=== PATIENT | male | born 1955 | race Caucasian/White ===

== ENCOUNTER 2016-06-17 11:51 | Observation (INO) | payer MEDICARE, OTHER ==
[2016-06-17] VITALS (8 sets, daily range): BP systolic 142–175; BP diastolic 67–82; PULSE 63–108; RESP 15–20; TEMP 97.9–98.4; O2SAT 97–100
[~2016-06-17] VITALS: Ht 175.3 cm; Wt 80.0 kg
--- NOTE | 2016-06-17 11:57 | PD ---
Physical Exam Time Seen by Provider: 11:56 Narrative 60 y/o male with a few hours of left sided chest tightness, "erratic" blood pressure readings over the past few days. VSS Seen at triage desk. Awaiting bed placement. Data Data Last Documented VS Vital Signs Date Time Temp Pulse Resp B/P Pulse Ox O2 Delivery O2 Flow Rate FiO2 06/17/16 11:53 98.2 108 15 175/82 98 MDM Medical Record Reviewed: Yes Supervised Visit with JOE: Víctor Lang June 17, 2016 11:57
[2016-06-17] MEDS: NITROGLYCERIN 0.4 MG SL 25 TABS/BTL SL SCH ×3 (12:29→12:40)
[2016-06-17] MEDS ORDERED: SODIUM CHLORIDE 0.9% FLUSH 10 ML FLUSH IVF PRN (12:30)
[2016-06-17 12:49] LABS: BASOPHIL % 0.4 % (0.0-2.0); EOSINOPHIL # 0.1 TH/MM3 (0-0.4); EOSINOPHIL % 0.8 % (0.0-4.0); HEMATOCRIT 39.7 % (39.0-51.0); HEMO FLAGS DIFF FINAL; LYMPH % 31.4 % (9.0-44.0); LYMPHOCYTE # 3.2 TH/MM3 (1.0-4.8); MEAN CELL VOLUME 90.8 FL (80.0-100.0); MEAN CORPUSCULAR HEMOGLOBIN 31.5 PG (27.0-34.0); MEAN CORPUSCULAR HGB CONC 34.7 % (32.0-36.0); NEUT % 58.4 % (16.0-70.0); PLATELET COUNT 305 TH/MM3 (150-450); RED BLOOD COUNT 4.37 MIL/MM3 (4.50-5.90); RED CELL DISTRIBUTION WIDTH 13.1 % (11.6-17.2); WHITE BLOOD COUNT 10.2 TH/MM3 (4.0-11.0)
[2016-06-17 12:58] LABS: APTT (PATIENT) 28.8 SEC (24.3-30.1); INTERNATIONAL NORMALIZED RATIO 0.9 RATIO; PROTHROMBIN TIME - PATIENT 10.2 SEC (9.8-11.6)
--- NOTE | 2016-06-17 12:58 | RADRPT ---
EXAM DATE/TIME: 06/17/2016 12:53 [facility] COMPARISON: No previous studies available for comparison. INDICATIONS : Chest pains for a few hours. MEDICAL HISTORY : None. SURGICAL HISTORY : None. ENCOUNTER: Initial ACUITY: 1 day PAIN SCORE: 2/10 LOCATION: Bilateral chest FINDINGS: PA and lateral views of the chest demonstrate the lungs to be symmetrically aerated without evidence of mass, infiltrate or effusion. The cardiomediastinal contours are unremarkable. Osseous structure s are intact. CONCLUSION: No acute disease. Flaco Godwin Jr., MD on June 17, 2016 at 12:55 Board Certified Radiologist. This report was verified electronically.
[2016-06-17 13:06] LABS: ANION GAP 11 MEQ/L (5-15); AST (GOT) 22 U/L (15-37); BLOOD UREA NITROGEN 17 MG/DL (7-18); CHLORIDE 104 MEQ/L (98-107); GLOMERULAR FILTRATION RATE 52 ML/MIN (>89); MAGNESIUM 2.4 MG/DL (1.5-2.5); POTASSIUM 4.3 MEQ/L (3.5-5.1); SODIUM (NA) 141 MEQ/L (136-145)
[2016-06-17 13:11] LABS: ALKALINE PHOSPHATASE 80 U/L (45-117); ALT (GPT) 26 U/L (12-78); TOTAL BILIRUBIN ADULT 0.2 MG/DL (0.2-1.0)
--- NOTE | 2016-06-17 13:18 | PD ---
HPI Chief Complaint: Chest Pain Time Seen by Provider: 12:07 Travel History International Travel<30 days: No Contact w/Intl Traveler<30days: No Traveled to known affect area: No History of Present Illness HPI So 53 year-old man who presents emergency Department with left-sided chest tightness that started this morning. He is a history of chronic back problems and takes opiates regularly. He's never had chest pain like this before that he can recall. No history of heart or lung disease. He states symptoms come on fairly abruptly this morning. Is been fairly constant since then although seems to wax and wane in severity. No clear aggravating or alleviating factors. He does feel like he may have a little bit of shortness of breath with it. Multiple associated complaints including some headache, some nausea, and he felt like his blood pressure is been up and down. He states overall he still not quite right for the past couple days, but no other clear prodromal symptoms. No history of exertional chest pain or shortness of breath. History Past Medical History Narrative Medical Multiple musculoskeletal complaints including chronic back and neck pain Daily opiate use Tetanus Vaccination: > 5 Years Influenza Vaccination: No Social History Alcohol Use: No Tobacco Use: Yes (5 CIGS/DAY) Allergies-Medications (Allergen,Severity, Reaction): Coded Allergies: No Known Allergies (Unverified , 06/17/16) Review of Systems Except as stated in HPI: all other systems reviewed are Neg Physical Exam Narrative GENERAL: 60-year-old man, no acute distress. SKIN: Focused skin assessment warm/dry. HEAD: Atraumatic. Normocephalic. EYES: Pupils equal and round. No scleral icterus. No injection or drainage. ENT: No nasal bleeding or discharge. Mucous membranes pink and moist. NECK: Trachea midline. No JVD. CARDIOVASCULAR: Regular rate and rhythm. No murmur appreciated. Strong symmetric radial pulses bilaterally. RESPIRATORY: No accessory muscle use. Clear to auscultation. Breath sounds equal bilaterally. GASTROINTESTINAL: Abdomen soft, non-tender, nondistended. Hepatic and splenic margins not palpable. MUSCULOSKELETAL: No obvious deformities. No clubbing. No cyanosis. No edema. NEUROLOGICAL: Awake and alert. No obvious cranial nerve deficits. Motor grossly within normal limits. Normal speech. PSYCHIATRIC: Appropriate mood and affect; insight and judgment normal. Data Data Last Documented VS Vital Signs Date Time Temp Pulse Resp B/P Pulse Ox O2 Delivery O2 Flow Rate FiO2 06/17/16 12:34 20 06/17/16 12:24 100 Room Air 06/17/16 12:07 98 06/17/16 12:07 171/82 06/17/16 11:53 98.2 Orders Electrocardiogram (06/17/16 12:22) Complete Blood Count With Diff (06/17/16 12:22) Comprehensive Metabolic Panel (06/17/16 12:22) Magnesium (Mg) (06/17/16 12:22) Prothrombin Time / Inr (Pt) (06/17/16 12:22) Act Partial Throm Time (Ptt) (06/17/16 12:22) Troponin I (06/17/16 12:22) Lipase (06/17/16 12:22) Ecg Monitoring (06/17/16 12:22) Bilateral Bp Monitoring (06/17/16 12:22) Iv Access Insert/Monitor (06/17/16 12:22) Oximetry (06/17/16 12:22) Oxygen Administration (06/17/16 12:22) Sodium Chloride 0.9% Flush (Ns Flush) (06/17/16 12:30) Nitroglycerin Sl (Nitrostat Sl) (06/17/16 12:30) Chest, Pa & Lat (06/17/16 12:22) Labs Laboratory Tests Test 06/17/16 12:30 White Blood Count 10.2 TH/MM3 Red Blood Count 4.37 MIL/MM3 Hemoglobin 13.8 GM/DL Hematocrit 39.7 % Mean Corpuscular Volume 90.8 FL Mean Corpuscular Hemoglobin 31.5 PG Mean Corpuscular Hemoglobin 34.7 % Concent Red Cell Distribution Width 13.1 % Platelet Count 305 TH/MM3 Mean Platelet Volume 8.3 FL Neutrophils (%) (Auto) 58.4 % Lymphocytes (%) (Auto) 31.4 % Monocytes (%) (Auto) 9.0 % Eosinophils (%) (Auto) 0.8 % Basophils (%) (Auto) 0.4 % Neutrophils # (Auto) 6.0 TH/MM3 Lymphocytes # (Auto) 3.2 TH/MM3 Monocytes # (Auto) 0.9 TH/MM3 Eosinophils # (Auto) 0.1 TH/MM3 Basophils # (Auto) 0.0 TH/MM3 CBC Comment DIFF FINAL Differential Comment Prothrombin Time 10.2 SEC Prothromb Time International 0.9 RATIO Ratio Activated Partial 28.8 SEC Thromboplast Time Sodium Level 141 MEQ/L Potassium Level 4.3 MEQ/L Chloride Level 104 MEQ/L Carbon Dioxide Level 26.0 MEQ/L Anion Gap 11 MEQ/L Blood Urea Nitrogen 17 MG/DL Creatinine 1.39 MG/DL Estimat Glomerular Filtration 52 ML/MIN Rate Random Glucose 80 MG/DL Calcium Level 9.3 MG/DL Magnesium Level 2.4 MG/DL Total Bilirubin 0.2 MG/DL Aspartate Amino Transf 22 U/L (AST/SGOT) Alanine Aminotransferase 26 U/L (ALT/SGPT) Alkaline Phosphatase 80 U/L Troponin I LESS THAN 0.02 NG/ML Total Protein 7.8 GM/DL Albumin 3.9 GM/DL Lipase 199 U/L MDM Medical Decision Making Medical Screen Exam Complete: Yes Emergency Medical Condition: Yes Interpretation(s) My review of EKG: Normal sinus rhythm at a rate of 95, normal axis, normal intervals, incomplete right bundle branch pattern, anterior precordial ST depressions or could suggest ischemia. LABS: CBC unremarkable. CMP unremarkable. Troponin negative. Lipase normal. Chest x-ray negative. Differential Diagnosis Chest pain, ACS, PE, dissection, strain or sprain, radiculopathy, other Narrative Course Medical decision making INITIAL: 60-year-old male presents emergency Department with left-sided chest tightness, starting today. EKG is a little bit abnormal with moderate ST depressions in anterior precordial leads, no definite evidence of acute ischemia. Initial workups negative. We will plan on admission to chest pain Center for further evaluation and serial cardiac enzymes. Don't see any evidence of PE or dissection. Diagnosis Primary Impression: Chest pain Admitting Information Admitting Physician Requests: Glenn Jessica MD June 17, 2016 13:18
[2016-06-17] MEDS ORDERED: ONDANSETRON HCL 4 MG/2 ML VIAL IV PRN (13:45)
[2016-06-17] MEDS ORDERED: NITROGLYCERIN 0.4 MG SL 25 TABS/BTL SL PRN (13:45)
[2016-06-17] MEDS ORDERED: ACETAMINOPHEN 500 MG CPLT PO PRN (13:45)
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
[2016-06-17 16:20] LABS: CREATINE KINASE 97 U/L (39-308)
[2016-06-17] MEDS ORDERED: IBUPROFEN 600 MG TAB PO PRN (18:30)
[2016-06-17 19:42] LABS: CREATINE KINASE 94 U/L (39-308)
[2016-06-17] MEDS ORDERED: SODIUM CHLORIDE 0.9% FLUSH 10 ML FLUSH IV FLUSH SCH (21:00)
[2016-06-18] MEDS ORDERED: ASPIRIN 325 MG TAB PO SCH (09:00)
--- NOTE | 2016-06-19 11:08 | EKG ---
Date Performed: 06/17/2016 Time Performed: 18:49:51 PTAGE: 60 years EKG: Sinus rhythm NORMAL ECG PREVIOUS TRACING : 06/17/2016 15.26 Since previous tracing, no significant change noted DOCTOR: Joe Keita Interpretating Date/Time 06/19/2016 11:07:14
--- NOTE | 2016-06-19 15:14 | EKG ---
Date Performed: 06/17/2016 Time Performed: 15:26:59 PTAGE: 60 years EKG: Sinus rhythm NORMAL ECG PREVIOUS TRACING : 06/17/2016 12.07 Since previous tracing, no significant change noted DOCTOR: Joe Keita Interpretating Date/Time 06/19/2016 15:12:48
--- NOTE | 2016-06-19 15:15 | EKG ---
Date Performed: 06/17/2016 Time Performed: 12:07:23 PTAGE: 60 years EKG: Sinus rhythm INCOMPLETE RIGHT BUNDLE BRANCH BLOCK MODERATE ST DEPRESSION ABNORMAL ECG NO PREVIOUS TRACING DOCTOR: Joe Keita Interpretating Date/Time 06/19/2016 15:13:59
== END 2016-06-17 22:51 | disposition left against medical advice (07) ==
LOC: NEPE 11:51 → NEDA 13:26 → NEPHCDU 15:12
PROVIDERS: ADMIT Internal Medicine Cardiovascular Disease; ATTEND Internal Medicine Cardiovascular Disease
DX: R07.89 Other chest pain (principal); M54.9 Dorsalgia, unspecified; G89.29 Other chronic pain; R94.31 Abnormal electrocardiogram [ECG] [EKG]; E78.5 Hyperlipidemia, unspecified; F17.210 Nicotine dependence, cigarettes, uncomplicated
CPT/HCPCS: 71020; 80053; 82550; 83690; 83735; 84484; 85025; 85610; 85730; 93005; 99285; G0378